=== PATIENT | male | born 1970 | race Caucasian/White ===

== ENCOUNTER 2017-04-16 15:55 | Emergency (ER) | payer BC, MEDICARE ==
[2017-04-16 16:05] VITALS: BP 157/96
[2017-04-16] MEDS ORDERED: DEXAMETHASONE 10 MG/ML VIAL PO STA (17:32)
[2017-04-16] MEDS ORDERED: DEXAMETHASONE 10 MG/ML VIAL ONE (17:34)
[2017-04-16] MEDS ORDERED: cefTRIAXone 1 GM VIAL IM STA (17:49)
--- NOTE | 2017-04-16 18:04 | XRAY Report ---
EXAM: CHEST RADIOGRAPHY EXAM DATE: 04/16/2017 05:47 PM. CLINICAL HISTORY: Cough fever rhonchi. COMPARISON: None. TECHNIQUE: 2 views. FINDINGS: Lungs/Pleura: Lung volumes are somewhat low. There is mildly increased opacity within the left medial lung base on frontal view without correlate on lateral view. No effusion. No pneumothorax. Mediastinum: Heart size is within normal limits. Other: None. IMPRESSION: 1. Lung volumes are somewhat low. 2. Heart size is within normal limits. 3. There is mildly increased opacity within the left medial lung base on frontal view without correla te on lateral view. This could represent lingular infiltrate. Differential consideration would be art ifact secondary to overlapping soft tissue and osteocartilaginous structures. 4. Lungs are otherwise clear. 5. No evidence of pneumothorax. [facility] Referring Provider Line: [phone] SITE ID: [id number]
[2017-04-16] MEDS ORDERED: LIDOCAINE 1% 2 ML VIAL ONE (18:07)
[2017-04-16] MEDS ORDERED: cefTRIAXone 1 GM VIAL ONE (18:07)
[2017-04-16] MEDS ORDERED: AZITHROMYCIN 250 MG TABLET PO STA (18:18)
[2017-04-16] MEDS ORDERED: AZITHROMYCIN 250 MG TABLET PO ONE (18:21)
--- NOTE | 2017-04-16 18:21 | ED Physician Documentation ---
PD HPI URI - Stated complaint Stated Complaint: CONGESTION/FEVER - Chief complaint Chief Complaint: General - History obtained from History obtained from: Patient, Family - History of Present Illness Timing - onset: How many days ago (4) Timing duration: Days (4) Timing details: Gradual onset, Still present Associated symptoms: Fever, Chills, Ear pain, Nasal congestion, Rhinorrhea, Sinus pain, Sore throat, Productive cough, Dyspnea. No: Hemoptysis, Bilateral edema, Unilateral edema Contributing factors: Travel Improves by: Rest, Medication Worsened by: Activity Similar symptoms before: Diagnosis (pneumonia, otitis and sinusitis) Recently seen: Not recently seen - Additional information Additional information: 46-year-old male with a history of pulmonary embolism has developed a cough and congestion over the past 4 days with fever and fatigue. He is ridden his motorcycle over here from [place] and feels exhausted. Last night he had to use his supplemental oxygen and today he feels worn out. Review of Systems Constitutional: reports: Fever, Chills, Myalgias, Fatigue Eyes: denies: Decreased vision Ears: reports: Ear pain Nose: reports: Rhinorrhea / runny nose, Congestion Throat: reports: Sore throat Cardiac: denies: Chest pain / pressure, Palpitations Respiratory: reports: Dyspnea, Cough GI: denies: Abdominal Pain, Nausea, Vomiting : denies: Dysuria, Frequency PD PAST MEDICAL HISTORY - Past Medical History Past Medical History: Yes Endocrine/Autoimmune: Type 2 diabetes Psych: Depression, Post traumatic stress disorder Other Past Medical History: Pulmonary emboli, cervical radiculopathy - Past Surgical History Past Surgical History: Yes - Present Medications Home Medications: Ambulatory Orders Medication Instructions Recorded Confirmed Azithromycin [Zithromax] 250 mg PO DAILY #4 tablet 04/16/17 Bupropion HCl [Bupropion Xl] 300 mg PO DAILY 04/16/17 04/16/17 Glimepiride 2 mg PO BID 04/16/17 04/16/17 Lisinopril 10 mg PO DAILY 04/16/17 04/16/17 Rivaroxaban [Xarelto] 20 mg PO DAILY 04/16/17 04/16/17 Sertraline [Zoloft] 50 mg PO DAILY 04/16/17 04/16/17 amLODIPine [Norvasc] 5 mg PO DAILY 04/16/17 04/16/17 busPIRone [Buspar] 15 mg PO DAILY 04/16/17 04/16/17 metFORMIN [Glucophage] 500 mg PO BID 04/16/17 04/16/17 traMADol [Ultram] 50 mg PO DAILY 04/16/17 04/16/17 - Allergies Allergies/Adverse Reactions: Allergies Allergy/AdvReac Type Severity Reaction Status Date / Time Penicillins Allergy Unknown Verified 04/16/17 16:05 - Social History Does the pt smoke?: Yes Smoking Status: Current every day smoker Does the pt drink ETOH?: No Does the pt have substance abuse?: No PD ED PE NORMAL - Vitals Vital signs reviewed: Yes (Hypertensive) - General General: No acute distress, Well developed/nourished - HEENT HEENT: Atraumatic, PERRL, EOMI, Other (Both TMs are erythematous the right is more so than the left the landmarks on the right are flattened.) - Neck Neck: Supple, no meningeal sign, No bony TTP - Cardiac Cardiac: RRR, No murmur - Respiratory Respiratory: No respiratory distress, Other (Rhonchi bibasilar with diminished breath sounds.) - Abdomen Abdomen: Soft, Non tender - Back Back: No CVA TTP, No spinal TTP - Derm Derm: Normal color, Warm and dry, No rash - Extremities Extremities: No deformity, No edema - Neuro Neuro: No motor deficit, No sensory deficit - Psych Psych: Normal mood, Normal affect Results - Vitals Vitals: Vital Signs - 24 hr 04/16/17 16:02 Temperature 36.5 C Heart Rate 90 Respiratory 24 Rate Blood Pressure 157/96 H O2 Saturation 99 Oxygen O2 Source Room air - Rads (name of study) 2 view chest Radiology: Prelim report reviewed (Impression: 1. Lung volumes are somewhat low.2. Heart size is within normal limits.3. There is mildly increased opacity within the left medial lung base on frontal view without correlate on lateral view. This could represent lingular infiltrate. Differential consideration would be artifact secondary to overlapping soft tissue and osteocartilaginous structures.4. Lungs are otherwise clear.5. No evidence of pneumothorax.), EMP read indepedently, See rad report PD MEDICAL DECISION MAKING - ED course Complexity details: reviewed results, re-evaluated patient, considered differential, d/w patient, d/w family ED course: 46-year-old male with prior history of pneumonia has pneumonia again and has otitis on exam. Here in the emergency department he is administered dexamethasone 10 mg orally he is given an injection of Rocephin and 500 mg of azithromycin. He will be staying here and not traveling back for about 1 week. Departure - Departure Disposition: Home, Self Care Clinical Impression: Otitis media Qualifiers: Otitis media type: suppurative Laterality: bilateral Chronicity: acute Recurrence: not specified as recurrent Spontaneous tympanic membrane rupture: without spontaneous rupture Qualified Code(s): H66.003 - Acute suppurative otitis media without spontaneous rupture of ear drum, bilateral Pneumonia Qualifiers: Pneumonia type: due to unspecified organism Laterality: left Lung location: lower lobe of lung Qualified Code(s): J18.1 - Lobar pneumonia, unspecified organism Instructions: ED Pneumonia Adult, ED Otitis Media Acute Adult Follow-Up: Your, doctor [Other] Prescriptions: Azithromycin [Zithromax] 250 mg PO DAILY #4 tablet
== END 2017-04-16 18:26 | disposition home or self-care (01) ==
LOC: ED 15:55
DX: J18.9 Pneumonia, unspecified organism (principal); H66.003 Acute suppurative otitis media without spontaneous rupture of ear drum, bilateral; E11.9 Type 2 diabetes mellitus without complications; Z79.84 Long term (current) use of oral hypoglycemic drugs; Z86.711 Personal history of pulmonary embolism; Z79.01 Long term (current) use of anticoagulants; F17.200 Nicotine dependence, unspecified, uncomplicated
CPT/HCPCS: 71020; 96372; 99283; A9270